=== PATIENT | male | born 1985 | race Caucasian/White ===

== ENCOUNTER → 2017-01-30 | Outpatient (CLI) | payer OTHER ==
[~2017-01-30] MED LIST: GABA-585 PO; HYDR-2672 PO; IBUP-1027 PO; OMEP20CA9 PO
--- NOTE | 2017-01-30 14:26 | KCIC ---
EXAM: Thoracic spine MRI without contrast. HISTORY: Lower back pain. Spinal cord stimulator preoperative evaluation. TECHNIQUE: Multiplanar, multisequence magnetic resonance imaging of the thoracic spine was performed without contrast. COMPARISON: 07/17/2016 FINDINGS: There is no significant thoracic listhesis. The thoracic vertebral bodies are normal in height. No suspicious osseous lesion is seen. There is a suspected hemangioma within T1. There are a few small Schmorl's nodes, the largest of which are seen at T7-T8. There is no thoracic disc protrusion or significant thoracic foraminal or central canal stenosis. There is a tiny cyst within the right thyroid lobe, of no clinical significance. There are degenerative changes at the lower lumbar levels. There are hemilaminectomy changes with overlying soft tissue scarring at L5-S1. There is dorsal epidural lipomatosis from T1-T2 through the lumbar levels. This is most significant at the mid thoracic levels, resulting in effacement of the dorsal thecal sac. IMPRESSION: 1. No acute osseous finding or significant degenerative disc disease or endplate change resulting in foraminal or central canal stenosis. 2. Degenerative and postoperative changes at the lumbosacral junction, better characterized on the lumbar spine MRI dated 06/27/2016. 3. Dorsal thoracic epidural lipomatosis, stable in appearance. Electronically signed by: Sri Rader MD (01/30/2017 2:23 PM)
== END | disposition home or self-care (01) ==
LOC: KCIC MRI 13:28
PROVIDERS: ATTEND Orthopaedic Surgery
DX: M47.897 Other spondylosis, lumbosacral region (principal)
CPT/HCPCS: 72146